=== PATIENT | male | born 1970 | race Caucasian/White ===

== ENCOUNTER 2025-03-10 13:30 | Emergency (ER) | payer BC, SELFPAY ==
[2025-03-10 13:33] VITALS: BP 126/78
--- NOTE | 2025-03-10 14:22 | ED.GENMED ---
History of Present Illness
General
Chief Complaint: Musculo-Skeletal Complaint
Source: patient
Exam Limitations: none
Time Seen by Provider: 03/10/25 14:18
Nursing documentation reviewed up to this point in time: agreed with
History of Present Illness
History of Present Illness:
55 y/o M with /o htn, hld
renal CA
here with L ankle/foot pain after twisting injury/inversion injury while working out today. he was able to comlete his work out and later on started having painful weight bearing
no swelling
no numbness
no other complaints
nothing taken for pain
ice on the ankle currently
Past History
Past History
ED Past Medical History: Cancer, HTN and Hypercholesterolemia
ED Past Surgical History: None
Review of Systems
Review of Systems
Allergies reviewed?: Yes
All Other Systems: Not applicable
Phy Exam
Physical Exam
Physical Exam:
GENERAL: Alert , in no apparent distress, comfortable at rest
HEAD: NCAT
CV: 2+ DP PULSES B/L
NEUROLOGICAL: Alert and oriented, no focal neuro deficits, , 5/5 strength, sensation intact, ambulation slight limp right leg
SKIN: Warm and dry,
MUSCULOSKELETAL: Normal inspection of the left foot and ankle, patient has no tenderness to the anterior or posterior tip of the lateral malleolus but does have tenderness at the cuboid region of the foot with pain with range of motion of the foot,
ankle stable, normal pulse, no distal foot tenderness, no proximal tib-fib tenderness, knee full range of motion
PSYCH: Normal and appropriate interaction.
Course
Orders/Labs/Results
Orders:
Orders
03/10/25 13:31
Ankle, left 3 view CR [CR Ankle - Left Min 3 Views ] Urgent
Comment:
Reason For Exam: pain/swelling/injury
CR Foot - Left Min 3 Views Urgent
Comment:
Reason For Exam: pain/swelling/injury
03/10/25 14:27
Ibuprofen [Motrin] 600 mg .ROUTE .STK-MED ONE
Vital Signs
Initial and Last Documented VS:
Initial Vital Signs
Temp Pulse Resp BP Pulse Ox
36.8 C 68 16 126/78 98
03/10/25 13:33 03/10/25 13:33 03/10/25 13:33 03/10/25 13:33 03/10/25 13:33
Last Documented Vital Signs
Temp Pulse Resp BP Pulse Ox
36.8 C 68 16 126/78 98
03/10/25 13:33 03/10/25 13:33 03/10/25 13:33 03/10/25 13:33 03/10/25 13:33
MDM/Problems Addressed
Differential Diagnosis Includes:
Ankle sprain, ankle fracture
MDM/Problems Addressed:
55 y/o M with h/o htn, hld
here with left lateral ankle and foot pain after inversion injury today
was initially able to weight bear, now not so much
nothing taken for pain
no swelling
tenderness to proximal foot laterally dosral
xrays indep reviewed, notice a small avulsion sliver of the cuboid bone
likely from ankle sprian
this is WBAT injury
will give crutches and cam boot and recommend ortho f/u.
*Critical Care Note
Total Time (30-74mins, 75-104mins- exclusive of procedures): Not Applicable
ED Attending Note
-
Portions of this chart may have been created with voice recognition software.� Occasional wrong word or��sound alike� substitutions may have occurred due to the inherent limitations of voice recognition software.
Discharge Plan
Departure
Patient Disposition: Home (Routine Discharge)
Date of Disposition: 03/10/25
Time of Disposition: 14:54
Patient with high blood pressure during this ER visit?: No
Condition: Fair
Covid-19: Not Applicable
Discharge Problem:
Left ankle sprain, Avulsion fracture
Instructions: Sprain (DC)
Prescriptions:
No Action
cephalexin 500 MG capsule
500 mg PO TID Qty: 15 0RF
Referrals:
Sahil Romero DO [Family Provider, Family Practice]
Hansel White MD [Active, Orthopedics] - Follow up in 5-7 days
Activity Restrictions/Additional Instructions:
YOU HAVE AN AVULSION FRACTURE OF YOUR CUBOID BONE FROM AN ANKLE SPRAIN
TRY AVOIDING WEIGHT BEARING BY USING CRUTCHES OR YOU CAN PARTIALLY WEIGHT BEAR WHILE USING THE CRUTCHES AND THE BOOT
YOU SHOULD HAVE FOLLOW UPW TIH A ORTHPEDIST IN 1-2 WEEKS
TAKE MOTRIN EVERY 8 HOURS WITH FOOD
ICE OFF AND ON
ELEVATE
TAKE THE BOOT OFF WHEN YOU SLEEP
RETURN FOR ANY CONCERNS.
Interventions
Interventions:
*Risk Screen - Suicide Last Done: 03/10/25 13:33
*General Assessment Last Done: 03/10/25 14:05
*Neglect/Abuse Screening Last Done: 03/10/25 13:33
*ED- Fall Risk Assessment Last Done: 03/10/25 14:05
*ED COVID-19 Vaccine History Last Done: 03/10/25 14:05
*Nursing Disposition Last Done: 03/10/25 15:04
ED-Musculoskeletal Assessment Last Done: 03/10/25 14:05
Discharge Date and Time
Discharge Date/Time: 03/10/25 15:05
Print Language: DOMINICAN
== END 2025-03-10 15:05 | disposition home or self-care (01) ==
LOC: EMR 13:30
PROVIDERS: EMERGENCY PHYSICIAN Emergency Medicine; FAMILY PHYSICIAN Family Medicine
DX: S93.402A Sprain of unspecified ligament of left ankle, initial encounter (principal); S92.212A Displaced fracture of cuboid bone of left foot, initial encounter for closed fracture; X50.1XXA Overexertion from prolonged static or awkward postures, initial encounter; I10 Essential (primary) hypertension; E78.00 Pure hypercholesterolemia, unspecified
CPT/HCPCS: 99283; 73610; 73630